=== PATIENT | male | born 1955 | race African-American/Black ===

== ENCOUNTER 2016-06-23 08:18 | Outpatient (CLI) ==
[2015-12-05 10:54] VITALS: BMI 35.0
--- NOTE | 2016-06-23 08:56 | US ---
EXAM: RENAL ULTRASOUND, BILATERAL HISTORY: Low GFR FINDINGS: Ultrasound renal, bilateral. Shelby-scale ultrasound and color Doppler imaging was perform ed. The right kidney measures 0.3 x 4.4 x 5.0 centimeters. The left kidney measures 12.0 x 6.3 x 5.6 centimeters. There is a lower left renal cyst measuring 5.1 cm. General renal cortical volume and echogenicity w ere otherwise unremarkable. No hydronephrosis identified. Urinary bladder appeared normal. IMPRESSION: Generally normal appearing kidneys other than a 5.1 cm cyst inferiorly on the left. This cyst appea rs simple sonographically. Urinary bladder appeared normal.
== END 2016-06-23 08:19 | disposition home or self-care (01) ==
LOC: RAD 08:18
PROVIDERS: ATTEND Family Medicine
DX: R94.4 Abnormal results of kidney function studies (principal)
CPT/HCPCS: 76770

== ENCOUNTER 2016-07-25 11:35 | Outpatient (CLI) ==
[2015-12-05 10:54] VITALS: BMI 35.0
--- NOTE | 2016-07-25 12:27 | DI ---
EXAM: Chest two view, frontal and lateral views. HISTORY: Cough. COMPARISON: None available. FINDINGS: The heart size is normal. There is no pulmonary vascular congestion. Mild consolidation suggested in the left lung base. Otherwise, the lungs are clear. No pleural effusion or pneumotho rax is seen. No acute osseous abnormality identified. IMPRESSION: Mild left basilar atelectasis or pneumonia.
== END 2016-07-25 11:36 | disposition home or self-care (01) ==
LOC: RAD 11:35
PROVIDERS: ATTEND Family Medicine
DX: R05 Cough (principal)

== ENCOUNTER 2016-08-07 10:30 | Outpatient (CLI) ==
[2015-12-05 10:54] VITALS: BMI 35.0
--- NOTE | 2016-08-07 10:49 | DI ---
EXAM: Chest two views HISTORY: Pneumonia COMPARISON: 07/25/2016 TECHNIQUE: Two views of the chest were performed FINDINGS: The lungs are clear. There is no pleural effusion or pneumothorax. The heart is normal in size. The mediastinal contour is normal. There are no acute abnormalities of the bones. IMPRESSION: No acute cardiopulmonary process.
== END 2016-08-07 10:31 | disposition home or self-care (01) ==
LOC: RAD 10:30
PROVIDERS: ATTEND Family Medicine
DX: J18.9 Pneumonia, unspecified organism (principal)

== ENCOUNTER 2016-11-14 13:27 | Outpatient (CLI) ==
[2015-12-05 10:54] VITALS: BMI 35.0
--- NOTE | 2016-11-14 14:05 | DI ---
EXAM: Radiographs, right first toe HISTORY: Initial presentation for right first toe trauma. COMPARISON: None available. TECHNIQUE: Three views. FINDINGS: Mildly displaced transverse fracture through the shaft of the first distal phalanx noted w ithout intra-articular extension. Congenitally short fourth right noted. IMPRESSION: Mildly displaced first distal phalangeal fracture.
== END 2016-11-14 13:28 | disposition home or self-care (01) ==
LOC: RAD 13:27
PROVIDERS: ATTEND Family Medicine
DX: S99.921A Unspecified injury of right foot, initial encounter (principal)

== ENCOUNTER 2017-07-16 14:28 | Outpatient (CLI) ==
[2015-12-05 10:54] VITALS: BMI 35.0
== END 2017-07-16 14:29 | disposition home or self-care (01) ==
LOC: LAB 14:28
PROVIDERS: ATTEND Internal Medicine Nephrology
DX: N18.3 Chronic kidney disease, stage 3 (moderate) (principal)
CPT/HCPCS: 36415; 86320

== ENCOUNTER 2017-12-16 09:03 | Outpatient (CLI) ==
[2015-12-05 10:54] VITALS: BMI 35.0
--- NOTE | 2017-12-16 13:34 | DI ---
EXAM: Two views of the right hip. History: Right hip pain. Findings: No acute fracture or dislocation. Mild to moderate narrowing of the right hip joint with marginal sclerosis and small osteophytes. Nonspecific pelvic calcifications are probably phleboliths . Impression: 1. No acute osseous abnormality. 2. 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
== END 2017-12-16 09:04 | disposition home or self-care (01) ==
LOC: RAD 09:03
PROVIDERS: ATTEND Family Medicine
DX: M25.551 Pain in right hip (principal)